=== PATIENT | male | born 1985 | race Caucasian/White ===

== ENCOUNTER 2020-12-02 05:42 | Inpatient (IN) | payer OTHER ==
[~2020-12-02] VITALS: Ht 188 cm; Wt 131.5 kg
[2020-12-02 06:28] LABS: HEMOGLOBIN 16.9 gm/dl (14.0-17.5); RED BLOOD COUNT 5.66 M/UL (4.20-5.50); WHITE BLOOD COUNT 13.2 K/UL (4.5-11.0)
[2020-12-02] MEDS ORDERED: GLUCOPHAGE 500500 MG PO (10:47)
[2020-12-02] MEDS ORDERED: VITAMIN D250 MCG PO (10:48)
[2020-12-02] MEDS ORDERED: MAGNESIUM200 MG PO (10:49)
[2020-12-02] MEDS ORDERED: POTASSIUM GLUCO99 MG PO (10:49)
--- NOTE | 2020-12-02 16:54 | NUR ---
ATTEMPTED TO PUT GAITAN CATH IN PATIENT, GOT RESISTANCE, PT REQUESTED FOR ME TO PULL THE CATHETER OUT. I DID REMOVE THE CATHETER REQUESTED FROM THE PATIENT. UPON REMOVAL, PT WAS ABLE TO VOID 800 CC ON HIS OWN. MADE AWARE. PT EDUCATED ON IMPORTANCE OF EMPTYING BLADDER ON HIS OWN Q6H PRN.
--- NOTE | 2020-12-02 18:14 | NUR ---
IV LOPRESSOR GIVEN AT APPROX 1440. BP RECHECK AT 1530 WAS 165/90. AWARE. WCTM.
--- NOTE | 2020-12-02 18:16 | NUR ---
GAVE [address] MCLEAN AT BEDSIDE, PER DR MCLEAN VERBAL ORDER. RESUME NS AT 125 PREVIOUSLY ORDERED AFTER BOLUS.
--- NOTE | 2020-12-02 20:05 | NUR ---
pt bp during shirft report 200/196 recheck 197/140; dr. gonzalez put in orders for pt to have clonidine, coreg and hydralazine and recheck within 1 hour. upon recheck bp 213/134 order to move to ICU. called [facility] put in for a bed.
--- NOTE | 2020-12-02 20:27 | NUR ---
Gave report to Prashant Perez RN and pt transported by Natalie Dove RN and Prashant Perez RN
[2020-12-03 07:31] LABS: HEMOGLOBIN 13.9 gm/dl (14.0-17.5); RED BLOOD COUNT 4.93 M/UL (4.20-5.50); WHITE BLOOD COUNT 9.4 K/UL (4.5-11.0)
[2020-12-04 02:58] LABS: ACINETOBACTER BAUMANNII Not Detected (Negative); CANDIDA ALBICANS Not Detected (Negative); CANDIDA KRUSEI Not Detected (Negative); CANDIDA TROPICALIS Not Detected (Negative); ENTEROCOCCUS Not Detected (Negative); ESCHERICHIA COLI Not Detected (Negative); HAEMOPHILUS INFLUENZAE Not Detected (Negative); KLEBSIELLA OXYTOCA Not Detected (Negative); KLEBSIELLA PNEUMONIAE Not Detected (Negative); KPC-CARBAPENEM-RESISTANCE GENE Not Detected (Negative); PROTEUS Not Detected (Negative); PSEUDOMONAS AERUGINOSA Not Detected (Negative); SERRATIA MARCESANS Not Detected (Negative); STAPHYLOCOCCUS AUREUS Not Detected (Negative); STREP AGALACTIAE (GROUP B) Not Detected (Negative); STREP PYOGENES (GROUP A) Not Detected (Negative); STREPTOCOCCUS Not Detected (Negative); mecA (METHICILLIN RESIST GENE Not Detected (Negative); vanA/B (VANCOMYCIN RESIST GENE Not Detected (Negative)
[2020-12-04 04:15] LABS: STAPHYLOCOCCUS DETECTED (Negative)
[2020-12-04 05:04] LABS: HEMOGLOBIN 13.3 gm/dl (14.0-17.5); RED BLOOD COUNT 4.53 M/UL (4.20-5.50); WHITE BLOOD COUNT 8.6 K/UL (4.5-11.0)
[2020-12-05 04:18] LABS: HEMOGLOBIN 13.2 gm/dl (14.0-17.5); RED BLOOD COUNT 4.53 M/UL (4.20-5.50); WHITE BLOOD COUNT 9.6 K/UL (4.5-11.0)
[2020-12-05 08:13] LABS: HBSAG SCREEN Negative (Negative); HCV AB <0.1 (0.0-0.9)
[2020-12-05 09:14] LABS: COMPLEMENT C3, SERUM 123 mg/dL (82-167)
[2020-12-06 08:09] LABS: ANTISTREPTOLYSIN O AB 28.7 IU/mL (0.0-200.0); COMPLEMENT C4, SERUM 25 mg/dL (12-38)
[2020-12-06 13:23] LABS: HEMOGLOBIN 11.9 gm/dl (14.0-17.5); WHITE BLOOD COUNT 8.3 K/UL (4.5-11.0)
[2020-12-06 13:25] LABS: RED BLOOD COUNT 4.06 M/UL (4.20-5.50)
[2020-12-07 05:13] LABS: HEMOGLOBIN 10.7 gm/dl (14.0-17.5); RED BLOOD COUNT 3.72 M/UL (4.20-5.50); WHITE BLOOD COUNT 8.5 K/UL (4.5-11.0)
--- NOTE | 2020-12-07 13:08 | NUR ---
Spoke with YOLIS Mohan re: PICC line. Awaiting approval from Dr. Pathak.
[2020-12-07 14:18] LABS: CRYPTOCOCCUS NEOFORMANS/GATTII Not Detected (Negative); CYTOMEGALOVIRUS Not Detected (Negative); ENTEROVIRUS Not Detected (Negative); ESCHERICHIA COLI K1 Not Detected (Negative); HAEMOPHILUS INFLUENZAE Not Detected (Negative); HERPES SIMPLEX VIRUS 1 Not Detected (Negative); HERPES SIMPLEX VIRUS 2 Not Detected (Negative); HUMAN HERPESVIRUS 6 Not Detected (Negative); HUMAN PARECHOVIRUS Not Detected (Negative); LISTERIA MONOCYTOGENES Not Detected (Negative); NEISERRIA MENINGITIDIS Not Detected (Negative); STREPTOCOCCUS AGALACTIAE Not Detected (Negative); STREPTOCOCCUS PNEUMONIAE Not Detected (Negative); VARICELLA ZOSTER VIRUS Not Detected (Negative)
[2020-12-07 14:55] LABS: GLUCOSE,CSF 136 mg/dL (50-80); TOTAL PROTEIN,CSF 52 mg/dL (20-45)
[2020-12-07 14:59] LABS: WBC (AUTOMATED 2 10^3 (0-5)
[2020-12-07 15:11] LABS: ANTI-DSDNA ANTIBODIES <1 IU/mL (0-9)
[2020-12-08 12:10] LABS: A/G RATIO 0.8 (0.7-1.7); ALBUMIN 2.4 g/dL (2.9-4.4); ALPHA-1-GLOBULIN 0.2 g/dL (0.0-0.4); ALPHA-2-GLOBULIN 1.3 g/dL (0.4-1.0); GAMMA GLOBULIN 0.6 g/dL (0.4-1.8); GLOBULIN, TOTAL 3.1 g/dL (2.2-3.9); IMMUNOGLOBULIN A, QN, SERUM 375 mg/dL (90-386); IMMUNOGLOBULIN G, QN, SERUM 678 mg/dL (603-1613); IMMUNOGLOBULIN M, QN, SERUM 146 mg/dL (20-172); M-SPIKE Not Observed g/dL (Not Observed); PROTEIN, TOTAL, SERUM 5.5 g/dL (6.0-8.5)
[2020-12-08 15:11] LABS: ANTIMYELOPEROXIDASE (MPO) ABS <9.0 U/mL (0.0-9.0); ANTIPROTEINASE 3 (PR-3) ABS <3.5 U/mL (0.0-3.5); ATYPICAL PANCA <1:20 titer (Neg:<1:20); CYTOPLASMIC (C-ANCA) <1:20 titer (Neg:<1:20); PERINUCLEAR (P-ANCA) <1:20 titer (Neg:<1:20)
[2020-12-09 10:14] LABS: ANTIGLOMERULAR BM AB 3 units (0-20)
[2020-12-09 13:14] LABS: ORGANISM ID Not indicated. (.); SPECIMEN SOURCE Urine (.); STREPTOCOCCUS PNEUMONIAE AG Negative (Negative)
== END 2020-12-07 19:40 | disposition short-term general hospital (02) | DRG 871 ==
LOC: ER1 05:42 → CCU 10:00 → CDU 10:00 → CCU 10:00 → M/S 11:32 → CCU 22:03 → M/S 12-06 17:22 → CCU 12-06 17:35
PROVIDERS: Family Medicine; Internal Medicine Nephrology; Physician Assistant Medical; ADMIT Internal Medicine
PROC: B24BZZ4 Ultrasonography of Heart with Aorta, Transesophageal (ICD-10-PCS; 2020-12-02)
PROC: 3E033XZ Introduction of Vasopressor into Peripheral Vein, Percutaneous Approach (ICD-10-PCS; principal; 2020-12-07)
PROC: 009U3ZX Drainage of Spinal Canal, Percutaneous Approach, Diagnostic (ICD-10-PCS; 2020-12-07)
PROC: B01B1ZZ Fluoroscopy of Spinal Cord using Low Osmolar Contrast (ICD-10-PCS; 2020-12-07)
PROC: 0BH17EZ Insertion of Endotracheal Airway into Trachea, Via Natural or Artificial Opening (ICD-10-PCS; 2020-12-07)
PROC: 5A1935Z Respiratory Ventilation, Less than 24 Consecutive Hours (ICD-10-PCS; 2020-12-07)
DX: A41.9 Sepsis, unspecified organism (principal); R65.21 Severe sepsis with septic shock; G04.90 Encephalitis and encephalomyelitis, unspecified; I67.83 Posterior reversible encephalopathy syndrome; G93.41 Metabolic encephalopathy; J96.01 Acute respiratory failure with hypoxia; I16.1 Hypertensive emergency; N17.9 Acute kidney failure, unspecified; N18.4 Chronic kidney disease, stage 4 (severe); I31.3 Pericardial effusion (noninflammatory); J90 Pleural effusion, not elsewhere classified; E87.2 Acidosis; E87.3 Alkalosis; M62.82 Rhabdomyolysis; Z20.822 Contact with and (suspected) exposure to COVID-19; I12.9 Hypertensive chronic kidney disease with stage 1 through stage 4 chronic kidney disease, or unspecified chronic kidney disease; I16.0 Hypertensive urgency; E66.01 Morbid (severe) obesity due to excess calories; E87.6 Hypokalemia; E86.0 Dehydration; I95.9 Hypotension, unspecified; E83.42 Hypomagnesemia; E78.5 Hyperlipidemia, unspecified; E11.22 Type 2 diabetes mellitus with diabetic chronic kidney disease; Z79.4 Long term (current) use of insulin; Z83.3 Family history of diabetes mellitus; Z81.1 Family history of alcohol abuse and dependence
CPT/HCPCS: ECHO; 0241U; 31500; 36415; 36600; 70450; 71045; 73620; 74018; 80048; 80053; 80202; 80307; 81001; 82043; 82140; 82150; 82550; 82553; 82570; 82728; 82784; 82803; 82945; 82962; 83036; 83520; 83605; 83615; 83690; 83735; 83874; 83880; 83883; 84100; 84132; 84155; 84156; 84157; 84165; 84484; 84550; 85025; 85027; 85379; 85384; 85610; 85652; 85730; 86038; 86060; 86140; 86160; 86225; 86256; 86334; 86803; 87040; 87070; 87077; 87081; 87086; 87150; 87186; 87205; 87278; 87340; 87483; 87899; 89051; 93005; 93306; 94002; 94664; 94760; 96365; 96366; 96367; 96368; 96372; 96374; 96375; 96376; 99284; G0378; G0480; J0133; J0360; J0692; J0696; J1650; J2250; J2405; J2550; J2704; J3010; J3370; J3475; J3486; J7030; J7070; J7120; P9047; U0002

== ENCOUNTER → 2021-04-15 | Day surgery (SDC) | payer OTHER ==
[~2021-04-15] MED LIST: AMLODIPINE BESY10 MG PO; ASPIRIN EC81 MG PO; ATORVASTATIN CA80 MG PO; B-1100 MG PO; COLACE100 MG PO; COREG 25MG TAB25 MG PO; ELIQUIS5 MG PO; FERROUS SULFAT325 M2 PO; FLOMAX 0.4 MG0.4 MG PO; FOLIC ACID 1 MG1 MG PO; GLUCOPHAGE 500500 MG PO; HUMALOG MI100 UNIT/1 SQ; HYDRALAZINE HC100 MG PO; LANTUS SOL100 UNIT/1 SQ; MAGNESIUM200 MG PO; MELATONIN10 M2 PO; MIRALAX17 GM PO; POTASSIUM GLUCO99 MG PO; PROTONIX20 MG PO; QUETIAPINE FUM100 MG PO; SENNA LAX8.6 MG PO; SODIUM BICARBO325 MG PO; VELTASSA PO; VITAMIN D250 MCG PO
== END | disposition home or self-care (01) ==
LOC: OR 07:25
DX: N40.1 Benign prostatic hyperplasia with lower urinary tract symptoms (principal); R33.8 Other retention of urine; N31.9 Neuromuscular dysfunction of bladder, unspecified; N47.1 Phimosis; E11.22 Type 2 diabetes mellitus with diabetic chronic kidney disease; N18.9 Chronic kidney disease, unspecified; E66.9 Obesity, unspecified; Z68.34 Body mass index [BMI] 34.0-34.9, adult; Z79.899 Other long term (current) drug therapy; Z79.82 Long term (current) use of aspirin; Z86.73 Personal history of transient ischemic attack (TIA), and cerebral infarction without residual deficits; Z79.4 Long term (current) use of insulin
CPT/HCPCS: 82962; J7040